=== PATIENT | female | born 1955 | race Caucasian/White ===

== ENCOUNTER 2021-02-05 17:09 | Emergency (ER) | payer MEDICARE, OTHER ==
[~2021-02-05] VITALS: Ht 170.2 cm; Wt 100.0 kg
--- NOTE | 2021-02-05 17:25 | NUR ---
PT BIB EMS FROM [facility] FOR R SHOULDER PAIN FOLLOWING A MECHANICAL GLF. +OBVIOUS DEFORMITY AND LIMITED RUE MOBILITY. DISTAL EXTREMITY PINK/WARM, STRENGTH AND SENSATION INTACT THOUGH PT REPORTS "TINGLING IN MY FINGERS". 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 BP/SPO2/ECG MONITORING IN PLACE. AWAITING ERP EVAL.
[2021-02-05] MEDS ORDERED: HYDROmorphone 2 MG/ML, 1ML ONE ×2 (17:38→18:32)
[2021-02-05] MEDS ORDERED: ONDANSETRON 2MG/ML, 2ML ONE ×2 (17:38→19:11)
--- NOTE | 2021-02-05 17:45 | NUR ---
PT MEDICATED PER EMAR FOR PAIN
[2021-02-05] MEDS ORDERED: ONDANSETRON 2MG/ML, 2ML IVPush ONE (18:00)
[2021-02-05] MEDS ORDERED: SODIUM CHLORIDE FLUSH 10ML SYR IVF ONE (18:00)
[2021-02-05] MEDS ORDERED: HYDROmorphone 2 MG/ML, 1ML IV ONE (18:00)
[2021-02-05] MEDS ORDERED: HYDROmorphone 1 MG/ML, 1ML INJ IV ONE (18:30)
--- NOTE | 2021-02-05 18:40 | NUR ---
PT REPORTS SOME IMPROVEMENT IN PAIN AFTER FIRST DOSE. ADDITIONAL PAIN MEDICATIONS GIVEN. PT UPDATED TO POC (CONSCIOUS SEDATION AND REDUCTION) AND DEMONSTRATES UNDERSTANDING. CONSENT SIGNED. PT/ROOM PREPARED FOR PROCEDURE
[2021-02-05] MEDS ORDERED: ETOMIDATE 20 MG/10 ML ONE (18:48)
[2021-02-05] MEDS ORDERED: PROPOFOL 10 MG/ML, 20ML ONE (18:57)
[2021-02-05] MEDS ORDERED: ETOMIDATE 20 MG/10 ML IVPush ONE (19:00)
--- NOTE | 2021-02-05 19:00 | NUR ---
REPORT TO JOSEPH CASILLAS
--- NOTE | 2021-02-05 19:01 | NUR ---
Report from Lindsey RUIZ
--- NOTE | 2021-02-05 19:10 | NUR ---
Pt tolerated procedural sedation well. Paper charting placed in pt chart with provider. XRAY notified to check placement. All VSS at this time. OSMAR
[2021-02-05] MEDS ORDERED: ONDANSETRON ODT 4 MG ONE (19:13)
--- NOTE | 2021-02-05 19:30 | NUR ---
Pt placed in shoulder immobilizer with 2 person assistance. SO educated on placement of shoulder immobilizer.
[2021-02-05 19:48] VITALS: BP 122/43
--- NOTE | 2021-02-05 19:48 | NUR ---
Pt alert and awake, able to conversate with staff. Verbalizes understanding of shoulder immoblizer and proper care. Waiting for to retrieve vehicle for safe dc
--- NOTE | 2021-02-05 20:53 | NUR ---
break rn: F/U AND D/C INSTRUCTIONS GIVEN TO PT WITH PRESCRIPTIONS AND SHE V/U. PTS IS ASSISTING PT, AND SHE IS WHEELED TO THE BATHROOM SHE NEEDS TO USE IT BEFORE DISCHARGE. PT ABLE TO TRANSFER TO WHEELCHAIR FROM STRETCHER, AND INSTRUCTIONS TO GO HOME AND REST WERE GIVEN, AND PT AND BOTH V/U.
== END 2021-02-05 20:56 | disposition home or self-care (01) ==
LOC: ED 19:57
DX: S43.084A Other dislocation of right shoulder joint, initial encounter (principal); I10 Essential (primary) hypertension; W01.0XXA Fall on same level from slipping, tripping and stumbling without subsequent striking against object, initial encounter; Y93.89 Activity, other specified; Y92.89 Other specified places as the place of occurrence of the external cause; Y99.8 Other external cause status
CPT/HCPCS: 23650; 73030; 96374; 96375; 96376; 99285; J1170; J2405